=== PATIENT | female | born 1990 | race Caucasian/White ===

== ENCOUNTER 2016-08-05 06:06 | Emergency (ER) | payer MEDICARE ==
[~2016-08-05 06:06] MED LIST: ALLEGRA-D 24 H1 EACH PO; BACTROBAN OINT22 GM; BREO ELLIPTA 11 EACH INH; FLONASE 0.05% N16 GM; LOPRESSOR 25 MG25 MG PO; POTASSIUM GLUCO99 MG PO; PREDNISONE 10 M10 MG PO; PROAIR HFA8.5 GM INH; SINGULAIR10 MG PO; VENTOLIN/PROVE0.5 ML INH; ZYRTEC10 MG PO
[2016-08-05 08:57] LABS: HEMOGLOBIN 14.3 gm/dl (12.3-15.3); RED BLOOD COUNT 4.91 M/UL (4.00-5.10); WHITE BLOOD COUNT 5.4 K/UL (4.5-11.0)
[2016-08-05 09:23] LABS: BUN/CREATININE RATIO 17 (0-10)
== END 2016-08-05 12:07 | disposition home or self-care (01) ==
LOC: ER1 06:06
PROVIDERS: Physician Assistant
DX: J10.1 Influenza due to other identified influenza virus with other respiratory manifestations (principal); J45.909 Unspecified asthma, uncomplicated; Z90.49 Acquired absence of other specified parts of digestive tract; Z88.1 Allergy status to other antibiotic agents; Z88.5 Allergy status to narcotic agent; Z88.6 Allergy status to analgesic agent; Z79.899 Other long term (current) drug therapy
CPT/HCPCS: 36415; 71020; 80053; 81001; 83605; 84703; 85025; 87040; 87081; 87880; 94664; 96374; 99283; J2930